=== PATIENT | male | born 2000 | race Caucasian/White ===

== ENCOUNTER 2023-03-04 12:24 | Emergency (ER) | payer OTHER ==
[~2023-03-04] VITALS: Ht 182.9 cm; Wt 78.4 kg
[2023-03-04] MEDS ORDERED: KETOROLAC 60MG 2ML VIAL IM ONE (14:25)
[2023-03-04] MEDS ORDERED: ELIQ5TAB PO (15:25)
[2023-03-04] MEDS ORDERED: APIXABAN 5 MG TAB (ELIQUIS) PO ONE (15:25)
[2023-03-04 15:55] VITALS: BP 143/85; TEMP 98; O2SAT 99
== END 2023-03-04 15:55 | disposition home or self-care (01) ==
LOC: M ED 12:24
DX: I82.621 Acute embolism and thrombosis of deep veins of right upper extremity (principal); M25.511 Pain in right shoulder; Z88.0 Allergy status to penicillin; Z79.01 Long term (current) use of anticoagulants
CPT/HCPCS: 73030; 93971; 96372; 99283; J1885

== ENCOUNTER 2023-04-06 07:18 | Emergency (ER) | payer OTHER ==
[~2023-04-06] VITALS: Ht 182.9 cm; Wt 77.9 kg
[~2023-04-06 07:18] MED LIST: ELIQ5TAB PO
[2023-04-06 08:34] VITALS: BP 121/81; TEMP 97.8; O2SAT 99
== END 2023-04-06 09:03 | disposition home or self-care (01) ==
LOC: M ED 07:18
DX: S09.90XA Unspecified injury of head, initial encounter (principal); I44.0 Atrioventricular block, first degree; W22.8XXA Striking against or struck by other objects, initial encounter; Y92.009 Unspecified place in unspecified non-institutional (private) residence as the place of occurrence of the external cause; Z88.0 Allergy status to penicillin; Z86.718 Personal history of other venous thrombosis and embolism; Z79.01 Long term (current) use of anticoagulants

== ENCOUNTER 2023-04-13 20:22 | Emergency (ER) | payer OTHER ==
[~2023-04-13] VITALS: Ht 182.9 cm; Wt 78.2 kg
[2023-04-13 20:23] VITALS: TEMP 99
[2023-04-13] MEDS ORDERED: METOCLOPRAMIDE 10MG TAB PO ONE (23:30)
[2023-04-13] MEDS ORDERED: ACETAMINOPHEN 500 MG TAB PO ONE (23:30)
[2023-04-13 23:44] VITALS: BP 133/85; O2SAT 99
== END 2023-04-13 23:45 | disposition home or self-care (01) ==
LOC: M ED 20:22
DX: S09.90XA Unspecified injury of head, initial encounter (principal); S49.91XA Unspecified injury of right shoulder and upper arm, initial encounter; S63.501A Unspecified sprain of right wrist, initial encounter; W17.89XA Other fall from one level to another, initial encounter; F17.200 Nicotine dependence, unspecified, uncomplicated; Z86.711 Personal history of pulmonary embolism; Z79.01 Long term (current) use of anticoagulants; Y99.1 Military activity; Z88.0 Allergy status to penicillin

== ENCOUNTER → 2023-09-01 | Outpatient (CLI) | payer OTHER ==
[~2023-09-01] MED LIST changes: +ISOVUE-300 61% 100ML VIAL As Ordered ONE; +LIDOCAINE 1% MDV 20ML VIAL As Ordered ONE; +PROHANCE 279.3MG/ML 5ML VIAL As Ordered ONE
== END ==
LOC: M RAD 06:59
PROVIDERS: ATTEND Physician Assistant
DX: M25.511 Pain in right shoulder (principal); M75.01 Adhesive capsulitis of right shoulder
CPT/HCPCS: 23350; 73223; 77002; A9576; Q9967

== ENCOUNTER 2023-10-05 15:54 | Emergency (ER) | payer OTHER ==
[~2023-10-05] VITALS: Ht 182.9 cm; Wt 80.3 kg
[~2023-10-05 15:54] MED LIST changes: -ISOVUE-300 61% 100ML VIAL As Ordered ONE; -LIDOCAINE 1% MDV 20ML VIAL As Ordered ONE; -PROHANCE 279.3MG/ML 5ML VIAL As Ordered ONE
[2023-10-05 15:55] VITALS: BP 147/91; TEMP 97.3; O2SAT 98
[2023-10-05 17:03] LABS: BASO # 0.1 10^3/uL (0.0-0.2); BASO % 1.6 % (0.0-1.0); EOS # 0.2 10^3/uL (0.0-0.5); EOS % 2.4 % (0.0-3.0); HEMATOCRIT 47.9 % (42.0-52.0); HEMOGLOBIN 16.3 g/dl (13.5-17.5); LYMPH # 2.7 10^3/uL (1.5-5.0); LYMPH % 36.3 % (24.0-44.0); MEAN CORPUSCULAR HEMOGLOBIN 30.2 pg (27.0-33.0); MEAN CORPUSCULAR VOLUME 88.9 fl (80.0-96.0); MONO # 0.7 10^3/uL (0.0-0.8); MONO % 8.9 % (2.0-8.0); NEUTROPHILS # 3.7 10^3/uL (1.5-8.5); NEUTROPHILS % 50.5 % (36.0-66.0); PLATELET COUNT, AUTOMATED 354 10^3/uL (150-450); RED BLOOD COUNT 5.39 10^6/uL (4.30-6.10); WHITE BLOOD COUNT 7.4 10^3/uL (4.0-10.0)
[2023-10-05 17:29] LABS: CK-MB VALUE MASS < 1.0 NG/ML (<3.6)
[2023-10-05 17:31] LABS: BLOOD UREA NITROGEN 11 MG/DL (9-23); CALCIUM LEVEL 9.4 MG/DL (8.5-10.1); CARBON DIOXIDE LEVEL 29 MMOL/L (20-31); CHLORIDE LEVEL 106 MMOL/L (98-107); CREATININE FOR GFR 0.87 MG/DL (0.70-1.30); GLOMERULAR FILTRATION RATE > 60.0 (>60); GLUCOSE, FASTING 84 MG/DL (60-100); POTASSIUM SERUM 4.1 MMOL/L (3.5-5.1); SODIUM LEVEL 137 MMOL/L (136-145)
[2023-10-05 17:34] LABS: CPK CREATINE PHOSPHOKINASE 89 U/L (46-171); MB/CK RELATIVE INDEX 1.12 (< OR =4)
[2023-10-05] MEDS: NS 1,000 ML IV ONE (20:55)
[2023-10-05] MEDS ORDERED: ISOVUE-370 76% 100ML VIAL As Ordered ONE (20:57)
[2023-10-05] MEDS: ALBUTEROL 90 MCG/ACT 8GM HFA INHALER INH ONE (21:05)
[2023-10-05 22:01] LABS: CK-MB VALUE MASS < 1.0 NG/ML (<3.6)
[2023-10-05 22:06] LABS: CPK CREATINE PHOSPHOKINASE 90 U/L (46-171); MB/CK RELATIVE INDEX 1.11 (< OR =4)
== END 2023-10-05 22:52 | disposition home or self-care (01) ==
LOC: M ED 15:54
DX: R07.9 Chest pain, unspecified (principal); F17.200 Nicotine dependence, unspecified, uncomplicated; Z86.718 Personal history of other venous thrombosis and embolism; Z88.0 Allergy status to penicillin; Z79.01 Long term (current) use of anticoagulants
CPT/HCPCS: 36415; 71046; 71275; 80048; 82550; 82553; 84484; 85025; 93005; 94640; 94664; 99284; Q9967

== ENCOUNTER → 2023-10-29 | Outpatient (CLI) | payer OTHER ==
[2023-10-29 12:40] LABS: BASO # 0.1 10^3/uL (0.0-0.2); BASO % 1.8 % (0.0-1.0); EOS # 0.2 10^3/uL (0.0-0.5); EOS % 3.3 % (0.0-3.0); HEMATOCRIT 49.8 % (42.0-52.0); HEMOGLOBIN 16.6 g/dl (13.5-17.5); LYMPH # 1.9 10^3/uL (1.5-5.0); LYMPH % 37.7 % (24.0-44.0); MEAN CORPUSCULAR HEMOGLOBIN 30.3 pg (27.0-33.0); MEAN CORPUSCULAR HGB CONC 33.3 g/dl (32.0-36.5); MEAN CORPUSCULAR VOLUME 90.9 fl (80.0-96.0); MONO # 0.4 10^3/uL (0.0-0.8); MONO % 7.9 % (2.0-8.0); NEUTROPHILS # 2.4 10^3/uL (1.5-8.5); NEUTROPHILS % 49.1 % (36.0-66.0); PLATELET COUNT, AUTOMATED 346 10^3/uL (150-450); RED BLOOD COUNT 5.48 10^6/uL (4.30-6.10); WHITE BLOOD COUNT 4.9 10^3/uL (4.0-10.0)
[2023-10-29 13:01] LABS: INR 1.14; PROTHROMBIN TIME 14.3 SECONDS (12.5-14.5)
== END ==
LOC: M LAB 11:25 → M PLALAB 11:25
PROVIDERS: ATTEND Internal Medicine Hematology
DX: Z86.718 Personal history of other venous thrombosis and embolism (principal)

== ENCOUNTER → 2023-11-03 | Outpatient (CLI) | payer OTHER ==
[~2023-11-03] MED LIST changes: +ISOVUE-300 61% 100ML VIAL As Ordered ONE; +NS 1,000 ML IV SCH
[2023-11-03 07:08] VITALS: BP 131/83; TEMP 98.3; O2SAT 100
== END ==
LOC: M IRPRO 07:00
PROVIDERS: ATTEND Internal Medicine Hematology
DX: I82.621 Acute embolism and thrombosis of deep veins of right upper extremity (principal)
CPT/HCPCS: 75820; Q9967